=== PATIENT | male | born 1930 | race Asian ===

== ENCOUNTER 2017-04-17 12:05 | Emergency (ER) | payer OTHER ==
[~2017-04-17] VITALS: Ht 172.7 cm; Wt 75.0 kg
[~2017-04-17 12:05] MED LIST: ALLO100T PO; ASPI81TA82 PO; CENTTAB9 PO; CHOL1CAP6 PO; DILTCD120 PO; METO50TA PO; OMEG100010; SIMV20 PO; TAMS0.4C67 PO; WARF3TAB PO; WHEELCHAIR RENTAL
[2017-04-17 12:07] VITALS: BP 144/74; PULSE 64; RESP 15; TEMP 98.2; O2SAT 99
[2017-04-17] MEDS ORDERED: COUM3TAB PO (12:21)
[2017-04-17] MEDS ORDERED: DILT120C7 PO (12:21)
[2017-04-17] MEDS ORDERED: ZOCO20TA PO (12:21)
[2017-04-17] MEDS ORDERED: ASPI81CH PO (12:21)
[2017-04-17] MEDS ORDERED: METO50TA PO (12:21)
[2017-04-17] MEDS ORDERED: ALLO300T2 PO (12:21)
[2017-04-17] MEDS ORDERED: TAMS5CAP PO (12:21)
[2017-04-17 12:22] VITALS: RESP 16; O2SAT 99
--- NOTE | 2017-04-17 12:25 | PD ---
HPI Chief Complaint: Laceration/Skin Injury Time Seen by Provider: 12:19 Travel History International Travel<30 days: No Contact w/Intl Traveler<30days: No Traveled to known affect area: No History of Present Illness HPI Patient comes in for evaluation of bleeding from behind his left ear ongoing since Thursday. Patient states he contacted his primary care doctor's office and was told to stop taking his Coumadin 5 days ago. Patient states it doesn't seem to bleed much during the day however when he wakes in the morning blood on his pillow. Patient denies bleeding from anywhere else. Denies any chest pain , headaches, fevers or shortness of breath, nausea, vomiting, loss change in bowel or bladder, or trauma. Patient just applies pressure during the day. Believes he scratches in his sleep causing it to bleed at night. PFSH Past Medical History Arthritis: No Asthma: No Atrial Fibrillation: Yes Autoimmune Disease: No Anxiety: No Depression: No Heart Rhythm Problems: Yes (ATRIAL FIB) Cancer: No Cardiovascular Problems: Yes High Cholesterol: Yes Chemotherapy: No Chest Pain: No Congestive Heart Failure: No COPD: No Cerebrovascular Accident: No Diabetes: No Diminished Hearing: No Endocrine: No Gastrointestinal Disorders: Yes (CONSTIPATION) GERD: Yes Genitourinary: No Hiatal Hernia: No Immune Disorder: No Kidney Stones: No Musculoskeletal: No Neurologic: Yes Psychiatric: No Reproductive: No Respiratory: Yes Migraines: No Renal Failure: No Seizures: No Sickle Cell Disease: No Sleep Apnea: No Thyroid Disease: No Ulcer: No Past Surgical History Abdominal Surgery: Yes (Intestinal ) AICD: No Arteriovenous Shunt: No Cardiac Surgery: No Ear Surgery: No Endocrine Surgery: No Eye Surgery: No Genitourinary Surgery: No Gynecologic Surgery: No Insulin Pump: No Joint Replacement: No Neurologic Surgery: Yes Oral Surgery: No Pacemaker: No Thoracic Surgery: No Other Surgery: Yes Social History Alcohol Use: No Tobacco Use: No Substance Use: No Allergies-Medications (Allergen,Severity, Reaction): Coded Allergies: No Known Allergies (Verified , 04/17/17) Reported Meds & Prescriptions Reported Meds & Active Scripts Active Reported Diltiazem ER 24 HR (Diltiazem HCl) 120 Mg Caper 120 Mg PO DAILY Coumadin (Warfarin) 3 Mg Tab 3 Mg PO DAILY Aspirin 81 Mg Chew 81 Mg PO DAILY Zocor (Simvastatin) 20 Mg Tab 20 Mg PO DAILY Allopurinol 300 Mg Tab 300 Mg PO DAILY Metoprolol Tartrate 50 Mg Tab 50 Mg PO DAILY Flomax (Tamsulosin HCl) 0.4 Mg Cap 0.4 Mg PO HS Review of Systems Except as stated in HPI: all other systems reviewed are Neg Physical Exam Narrative GENERAL: Well-developed, well nourished, in no acute distress, and non-ill appearing. SKIN: Small amount of bleeding coming from around mole behind his left ear. There is no foreign body. HEAD: Atraumatic. Normocephalic. EYES: Pupils equal and round. EOMI. No scleral icterus. No injection or drainage. ENT: No nasal bleeding or discharge. Mucous membranes pink and moist. NECK: Trachea midline. Supple. No nuclear rigidity. RESPIRATORY: No accessory muscle use. No respiratory distress. MUSCULOSKELETAL: No obvious deformities. No clubbing. No cyanosis. No edema. Full range of motion. NEUROLOGICAL: Awake and alert. No obvious cranial nerve deficits. Motor grossly within normal limits. Normal speech. PSYCHIATRIC: Appropriate mood and affect; insight and judgment normal. Data Data Last Documented VS Vital Signs Date Time Temp Pulse Resp B/P (MAP) Pulse Ox O2 Delivery O2 Flow Rate FiO2 04/17/17 14:06 97.8 67 16 122/83 (96) 99 04/17/17 12:22 Room Air Orders Orders Prothrombin Time / Inr (Pt) (04/17/17 12:20) Act Partial Throm Time (Ptt) (04/17/17 12:20) Iv Access Insert/Monitor (04/17/17 12:20) Ecg Monitoring (04/17/17 12:20) Oximetry (04/17/17 12:20) Sodium Chloride 0.9% Flush (Ns Flush) (04/17/17 12:30) Labs Laboratory Tests Test 04/17/17 12:05 Prothrombin Time 19.9 SEC Prothromb Time International Ratio 1.8 RATIO Activated Partial Thromboplast Time 39.7 SEC MDM Medical Decision Making Medical Screen Exam Complete: Yes Emergency Medical Condition: Yes Differential Diagnosis Ulceration, abrasion, supratherapeutic INR, subtherapeutic INR, other Narrative Course Patient in no obvious distress upon re-evaluation. All pertinent laboratory result(s) discussed with patient. Discussed patient with Dr. Squires prior to discharge, who is in agreement with plan of care and disposition. Any questions /concerns in reference to patient diagnosis/condition discussed and clarified prior to patient's discharge. Reinforced sheer importance of close follow up with patient's primary physician or primary care clinic. Instructed patient to return to ED immediately, if symptoms return/worsen. Pt showed understanding of above instructions. Further instructions and recommendations were detailed in discharge paperwork. Pt ambulated without difficulty out of ED at discharge. Procedures Procedure Narrative Verbal consent was obtained. Area was cleaned using wound high pressure cleaner. Wound seal was applied to stop bleeding. Patient tolerated procedure well. There is no consultations. Diagnosis Primary Impression: Bleeding from wound Patient Instructions: Abrasion (ED), Acute Wounds (ED), General Instructions Additional Instructions: Follow-up with your primary care physician in 3-5 days for reevaluation. Do not restart your Coumadin until instructed to by your primary care doctor. Return to the emergency department if symptoms get worse. Disposition: 01 DISCHARGE HOME Condition: Stable Narendra Parada Apr 17, 2017 12:25
[2017-04-17] MEDS ORDERED: SODIUM CHLORIDE 0.9% FLUSH 10 ML FLUSH IV FLUSH PRN (12:30)
[2017-04-17 13:25] LABS: APTT (PATIENT) 39.7 SEC (24.3-30.1); INTERNATIONAL NORMALIZED RATIO 1.8 RATIO; PROTHROMBIN TIME - PATIENT 19.9 SEC (9.8-11.6)
[2017-04-17 14:06] VITALS: BP 122/83; TEMP 97.8
== END 2017-04-17 14:06 | disposition home or self-care (01) ==
LOC: NEPD 12:05
DX: R58 Hemorrhage, not elsewhere classified (principal); Z79.01 Long term (current) use of anticoagulants
CPT/HCPCS: 85610; 85730; 99283